=== PATIENT | male | born 1980 | race Caucasian/White ===

== ENCOUNTER → 2020-05-06 | Outpatient (CLI) | payer OTHER ==
--- NOTE | 2020-05-06 15:51 | RAD ---
Bilateral ankles, 3 views each INDICATION: Ankle injury and pain FINDINGS: AP, lateral and oblique views of the right and left ankles were obtained. They show the left ankle has a lateral plate and screw construct fixation of a previous distal fibular fracture with anatomic alignment and good healing. The soft tissues are unremarkable. No acute or aggressive osseous lesions are seen. The right ankle shows an oblique fracture through the distal fibula at the level of the tibial plafond with minimal lateral displacement of the distal fracture fragment by approximately a cortical width. The mortise appears symmetric and no additional fractures are seen. There is mild overlying soft tissue swelling around the lateral aspect of the right ankle. IMPRESSION: 1. Villarreal type B fracture of the right ankle with associated soft tissue swelling. 2. ORIF distal lateral malleolus fracture fixation of the left ankle with evidence of healing. No acute osseous abnormality shown. Electronically signed by: Tram Castano MD (05/06/2020 3:48 PM) [id number]
== END ==
LOC: RAD 11:57 → EEVIPCON 11:57
PROVIDERS: ATTEND Family Medicine
DX: S82.891A Other fracture of right lower leg, initial encounter for closed fracture (principal); S82.62XB Displaced fracture of lateral malleolus of left fibula, initial encounter for open fracture type I or II; M79.89 Other specified soft tissue disorders; M24.672 Ankylosis, left ankle; X58.XXXA Exposure to other specified factors, initial encounter; Y93.89 Activity, other specified; Y92.89 Other specified places as the place of occurrence of the external cause; Y99.8 Other external cause status
CPT/HCPCS: 73610